=== PATIENT | female | born 1995 ===

== ENCOUNTER 2023-01-31 13:08 | Emergency (ER) | payer MEDICAID ==
[~2023-01-31] VITALS: Ht 165.1 cm; Wt 72.6 kg
[2023-01-31 13:18] VITALS: BP 146/92
[2023-01-31] MEDS ORDERED: IBUP-2213 PO (14:48)
[2023-01-31] MEDS ORDERED: KETOROLAC 30 MG/ML VIAL IM ONE (14:50)
[2023-01-31 15:53] VITALS: BP 134/90
--- NOTE | 2023-01-31 15:53 | NUR ---
Patient discharged with v/s stable. Written and verbal after care instructions given. Patient alert, oriented and verbalized understanding of instructions. Ambulatory with steady gait. All questions addressed prior to discharge. ID band removed. Patient advised to follow up with PMD. Rx of Ibuprofen given. Opportunity to ask questions provided and answered.
--- NOTE | 2023-01-31 15:54 | NUR ---
The patient's care was reviewed and supervised by Carolyn Gaines, RN, RN.
== END 2023-01-31 15:53 | disposition home or self-care (01) ==
LOC: MED 13:08
DX: J02.9 Acute pharyngitis, unspecified (principal); R13.10 Dysphagia, unspecified; Z79.1 Long term (current) use of non-steroidal anti-inflammatories (NSAID)
CPT/HCPCS: 81025; 96372; 99283; J1885